=== PATIENT | female | born 1975 | race Caucasian/White ===

== ENCOUNTER → 2017-04-24 | Outpatient (CLI) | payer OTHER ==
[2005-11-21 09:00] VITALS: TEMP 97.9
== END ==
LOC: MC.RAD 07:18
DX: Z12.31 Encounter for screening mammogram for malignant neoplasm of breast (principal)

== ENCOUNTER → 2019-05-09 | Outpatient (CLI) | payer OTHER ==
[2005-11-21 09:00] VITALS: TEMP 97.9
== END ==
LOC: MC.RAD 07:22
DX: Z12.31 Encounter for screening mammogram for malignant neoplasm of breast (principal)

== ENCOUNTER → 2020-05-24 | Outpatient (CLI) | payer OTHER ==
[2005-11-21 09:00] VITALS: TEMP 97.9
== END ==
LOC: MC.RAD 05-10 08:45
DX: Z12.31 Encounter for screening mammogram for malignant neoplasm of breast (principal)

== ENCOUNTER → 2021-06-18 | Outpatient (CLI) | payer OTHER ==
[2005-11-21 09:00] VITALS: TEMP 97.9
== END ==
LOC: MC.RAD 07:30
DX: Z12.31 Encounter for screening mammogram for malignant neoplasm of breast (principal); N64.89 Other specified disorders of breast

== ENCOUNTER → 2021-06-27 | Outpatient (CLI) | payer OTHER ==
[2005-11-21 09:00] VITALS: TEMP 97.9
== END ==
LOC: MC.RAD 12:49
DX: N60.31 Fibrosclerosis of right breast (principal)

== ENCOUNTER → 2023-07-08 | Outpatient (CLI) | payer BC ==
[2005-11-21 09:00] VITALS: TEMP 97.9
== END ==
LOC: MC.RAD 08:16
DX: Z12.31 Encounter for screening mammogram for malignant neoplasm of breast (principal)